=== PATIENT | male | born 1990 | race Caucasian/White ===

== ENCOUNTER 2020-07-27 12:14 | Emergency (ER) | payer MEDICAID ==
[~2020-07-27] VITALS: Ht 190.5 cm; Wt 114.8 kg
[2020-07-27 14:31] LABS: MEAN CORPUSCULAR HEMOGLOBIN 28.2 pg (27.5-34.5); MEAN CORPUSCULAR VOLUME 85.3 fL (81-97); PLATELET COUNT 487 x10^3/uL (130-400); RED BLOOD COUNT 5.31 x10^6/uL (4.38-5.82); RED CELL DISTRIBUTION WIDTH 15.5 % (9.4-14.8)
[2020-07-27 14:35] LABS: ALBUMIN 2.9 g/dL (3.4-5.0); ANION GAP 8 mmol/L (5-15); CHLORIDE 113 mmol/L (98-107); CREATININE 0.81 mg/dL (0.7-1.3)
[2020-07-27 14:37] LABS: SALICYLATE LEVEL < 1.7 mg/dL (2.8-20.0)
[2020-07-27 15:56] LABS: MD YES
[2020-07-27 16:00] LABS: BANDS%(MANUAL) 2 % (0-7); EOS#(MANUAL) 2.27 x10^3/uL (0.0-0.4); EOS% (MANUAL) 15 % (1-7); LYMPH#(MANUAL) 2.72 x10^3/uL (1-3.4); LYMPHS% (MANUAL) 18 % (22-44); MONOS#(MANUAL) 0.76 x10^3/uL (0.3-2.7); MONOS% (MANUAL) 5 % (2-9); SEG#(MANUAL) 9.06 x10^3/uL (1.8-6.8); SEGS% (MANUAL) 60 % (42-75)
[2020-07-27 16:01] LABS: <PLATELET ESTIMATE> INCREASED; <PLT MORPHOLOGY> NORMAL PLT MORPH; ANISOCYTOSIS 1+; POLYCHROMASIA 1+
[2020-07-27] MEDS ORDERED: OLANZAPINE 10 MG TABLET PO SCH (17:00)
[2020-07-27] MEDS ORDERED: OLANZAPINE 10 MG TABLET ONE (17:15)
[2020-07-27 17:52] LABS: AMPHETAMINE SCREEN, URINE Positive (Negative); BARBITURATE SCREEN, URINE Negative (Negative); BENZODIAZEPINE SCREEN, URINE Negative (Negative); CANNABINOID SCREEN, URINE Positive (Negative); COCAINE SCREEN, URINE Positive (Negative); METHADONE SCREEN, URINE Negative (Negative); OPIATE SCREEN, URINE Negative (Negative)
[2020-07-27] MEDS ORDERED: LORazepam 1MG TABLET ONE (18:22)
[2020-07-27] MEDS ORDERED: D5%-0.45% NACL 500 ML IV ONE (18:25)
[2020-07-27] MEDS ORDERED: ALBUTEROL SULFATE 2.5 MG/3 ML NPPB SCH (18:30)
[2020-07-27] MEDS ORDERED: LORazepam 2 MG/ML, 1ML IVPush ONE (18:30)
[2020-07-27] MEDS ORDERED: DEXTROSE 50%, 50ML SYRINGE IVPush ONE (18:30)
[2020-07-27] MEDS ORDERED: DEXTROSE 50%, 50ML SYRINGE ONE (19:17)
--- NOTE | 2020-07-27 19:48 | NUR ---
TP: PACKET FAXED TO ALL FACILITIES
[2020-07-27] MEDS ORDERED: LORazepam 1MG TABLET PO ONE (20:00)
--- NOTE | 2020-07-27 20:58 | NUR ---
Report from Mikal BURRELL
--- NOTE | 2020-07-27 21:44 | NUR ---
MT: [facility] ACCEPTED PT FOR [address]200. ACCEPTING DR IS DR. SOLORIO.
[2020-07-27 22:24] VITALS: BP 113/76
--- NOTE | 2020-07-27 22:35 | NUR ---
[facility] refused referral at this time, [facility] at capacity.
--- NOTE | 2020-07-27 22:50 | NUR ---
Report received from MASHA Costa. This RN to assume care. Patient resting in [facility] with no complaints. Room secured, belongings in locked cabinet. Sitter outside.
--- NOTE | 2020-07-27 23:25 | NUR ---
Patient sleeping in [place]. Respirations even and unlabored. Room secured, belongings in locked cabinet. Sitter outside.
--- NOTE | 2020-07-27 23:45 | NUR ---
TP: [facility] FAXED TO [facility]. [facility] CALLED AND AUTHORIZATION GIVEN TO [facility].
--- NOTE | 2020-07-28 00:43 | NUR ---
Patient sleeping in [place]. Respirations even and unlabored. Room secured, belongings in locked cabinet, sitter outside.
--- NOTE | 2020-07-28 01:00 | NUR ---
Patient sleeping in [place]. Respirations even and unlabored. Room secured, belongings in locked cabinet, sitter outside.
--- NOTE | 2020-07-28 02:11 | NUR ---
MARTIN arrived to [facility] operator patient. Report given. IV d/c. Belongings with [facility] crew. Patient cooperative and calm.
== END 2020-07-28 02:13 ==
LOC: ED 13:33
DX: F15.150 Other stimulant abuse with stimulant-induced psychotic disorder with delusions (principal); R45.851 Suicidal ideations; F32.9 Major depressive disorder, single episode, unspecified; R44.0 Auditory hallucinations; R00.0 Tachycardia, unspecified
CPT/HCPCS: 36415; 80048; 80307; 82040; 85025; 96365; 99285